=== PATIENT | male | born 1995 | race Caucasian/White ===

== ENCOUNTER 2017-06-30 09:22 | Emergency (ER) | payer BC, SELFPAY ==
[2017-06-30 09:24] VITALS: BP 153/93; PULSE 71; RESP 16; TEMP 36.8; O2SAT 99; BMI 29.0
[2017-06-30] MEDS: Ketorolac 30 MG/ML Syringe IV (10:09)
[2017-06-30] MEDS: DiphenhydrAMINE 50 MG/ML Syringe 25 MG IV (10:09)
[2017-06-30] MEDS: Haloperidol Lactate 5 MG/ML Vial 2 MG IV (10:09)
--- NOTE | 2017-06-30 10:12 | ED.VISSUMM ---
- ER Visit Summary Date of Service: 06/30/17 Chief Complaint: Intermittent t throbbing numb right-sided headache since blunt trauma 1.5 weeks ago History of Present Illness: The patient is a 21 M who states a 4-6 inch diameter limb struck the right side of his head 1-1/2 weeks ago. He may have been days of the time. He has had 2 episodes of headache described as a numb throbbing sensation that was alleviated with Tylenol. He presents today because the headache was not alleviated with Tylenol and has been present for 3 hours. He denies photophobia, loss of vision or double vision. He reported one episode of blurred vision left side of the monitor only. He is unable to tell me the duration. He denies any trouble with speech or swallowing. He denies any paresthesia, anesthesia or motor weakness. He denies any problems with walking or balance. He denies any trouble with sleep i.e. getting to sleep, staying asleep or awakening the morning. He denies confusion or feeling foggy. He denies photosensitivity. He denied any neck pain, paresthesia, anesthesia moderates the time of the injury or since the injury. The person that is with him is concerned that this may be secondary to him not taking his Trileptal at night for the past 3 nights. There is been no seizure activity since the incident. He has a history of complex partial seizures. Physical Examination: Vital signs remarkable blood pressure 153/93. Head is atraumatic normocephalic. Pupils are equal round reactive. Extraocular muscles are intact. Funduscopic exam reveals normal cup-to-disc ratio and no papilledema. There is no APD. TMs are pearly white with landmarks noted. Nares patent with no drainage. Posterior pharynx without erythema or exudate. Uvula is midline. There is no dysphonia or dysphasia. Trachea is midline. There is no stridor with auscultation of the neck. There is no pain palpation of the cervical spine. Heart is regular without murmur, gallop or rub. S1 and S2 are normal. Lungs are clear to auscultation with good movement of air bilaterally. Abdomen is soft nontender. GCS is 15. Patient is alert and oriented ?3. Motor is 5/5. Sensation is intact. DTRs are symmetric and 2+ without clonus or Babinski. Cranial nerves II through XII are intact. Finger to nose to finger was performed adequately. Gait was observed and is normal. There is no truncal ataxia. Test Results: No tests were obtained Emergency Department Course and Treatment: And chemical operations and training were informed since there was no loss of conscious his headache is been intermittent and he has a normal neuro exam radiologic imaging is not indicated based on the [place] CT head rule and [place] rule. His chemical operations and training asked if this may represent a concussion. She was informed that there is no specific test for concussion. Since his symptoms are intermittent and not precipitated or exacerbated by anything doubt this is a concussion. IV was ordered and to treat his headache 30 g of Toradol and 25 mg of Benadryl was ordered. 10 mg of Reglan was also ordered. I was informed that there is a shortage and there is no Reglan available in the hospital. Therefore, patient was treated with 2 mg of Haldol IV push. Treatment Plan: Patient was reassessed at 1045. He reports headache is three-quarter gone. Disposition: Discharged to home in stable and improved condition Impression: 1. Unilateral headache uncertain etiology 2. History of blunt head trauma/contusion 3. History of partial complex seizure disorder and noncompliance of medication This note was generated with [employer] dictation software. It may contain incorrect words, spelling, and punctuation that were not noted in review of the chart prior to signing ED Disposition - Plan for ED Patient: Disposition: Home or Assisted Living Chief Complaint: Headache Instructions: ED Cephalgia Unspecified, ED Contusion Scalp Referrals: Care Physician,No Primary [Primary Care Provider] - Additional Instructions: Patient has not seen a physician since he turned 20. Since he is not from the area he and his significant other were instructed to contact a physician in their area for follow-up. He also was informed of importance to take his seizure medication.
--- NOTE | 2017-06-30 10:18 | ED.DCSUM_ITS ---
- ER Visit Summary Date of Service: 06/30/17 Chief Complaint: Intermittent t throbbing numb right-sided headache since blunt trauma 1.5 weeks ago History of Present Illness: The patient is a 21 M who states a 4-6 inch diameter limb struck the right side of his head 1-1/2 weeks ago. He may have been days of the time. He has had 2 episodes of headache described as a numb throbbing sensation that was alleviated with Tylenol. He presents today because the headache was not alleviated with Tylenol and has been present for 3 hours. He denies photophobia, loss of vision or double vision. He reported one episode of blurred vision left side of the monitor only. He is unable to tell me the duration. He denies any trouble with speech or swallowing. He denies any paresthesia, anesthesia or motor weakness. He denies any problems with walking or balance. He denies any trouble with sleep i.e. getting to sleep , staying asleep or awakening the morning. He denies confusion or feeling foggy. He denies photosensitivity. He denied any neck pain, paresthesia, anesthesia moderates the time of the injury or since the injury. The person that is with him is concerned that this may be secondary to him not taking his Trileptal at night for the past 3 nights. There is been no seizure activity since the incident. He has a history of complex partial seizures. Physical Examination: Vital signs remarkable blood pressure 153/93. Head is atraumatic normocephalic. Pupils are equal round reactive. Extraocular muscles are intact. Funduscopic exam reveals normal cup-to-disc ratio and no papilledema. There is no APD. TMs are pearly white with landmarks noted. Nares patent with no drainage. Posterior pharynx without erythema or exudate. Uvula is midline. There is no dysphonia or dysphasia. Trachea is midline. There is no stridor with auscultation of the neck. There is no pain palpation of the cervical spine. Heart is regular without murmur, gallop or rub. S1 and S2 are normal. Lungs are clear to auscultation with good movement of air bilaterally. Abdomen is soft nontender. GCS is 15. Patient is alert and oriented ?3. Motor is 5/5. Sensation is intact. DTRs are symmetric and 2+ without clonus or Babinski. Cranial nerves II through XII are intact. Finger to nose to finger was performed adequately. Gait was observed and is normal. There is no truncal ataxia. Test Results: No tests were obtained Emergency Department Course and Treatment: And brake drum molder were informed since there was no loss of conscious his headache is been intermittent and he has a normal neuro exam radiologic imaging is not indicated based on the [place] CT head rule and [place] rule. His brake drum molder asked if this may represent a concussion. She was informed that there is no specific test for concussion. Since his symptoms are intermittent and not precipitated or exacerbated by anything doubt this is a concussion. IV was ordered and to treat his headache 30 g of Toradol and 25 mg of Benadryl was ordered. 10 mg of Reglan was also ordered. I was informed that there is a shortage and there is no Reglan available in the hospital. Therefore, patient was treated with 2 mg of Haldol IV push. Treatment Plan: Patient was reassessed at 1045. He reports headache is three- quarter gone. Disposition: Discharged to home in stable and improved condition Impression: 1. Unilateral headache uncertain etiology 2. History of blunt head trauma/contusion 3. History of partial complex seizure disorder and noncompliance of medication This note was generated with [employer] dictation software. It may contain incorrect words, spelling, and punctuation that were not noted in review of the chart prior to signing ED Disposition - Plan for ED Patient: Disposition: Home or Assisted Living Chief Complaint: Headache Instructions: ED Cephalgia Unspecified, ED Contusion Scalp Referrals: Care Physician,No Primary [Primary Care Provider] - Additional Instructions: Patient has not seen a physician since he turned 20. Since he is not from the area he and his significant other were instructed to contact a physician in their area for follow-up. He also was informed of importance to take his seizure medication.
[2017-06-30 11:10] VITALS: PULSE 99; RESP 16; O2SAT 99
== END 2017-06-30 11:12 | disposition home or self-care (01) ==
PROVIDERS: Emergency Provider Emergency Medicine
DX: R51 Headache (principal); G40.209 Localization-related (focal) (partial) symptomatic epilepsy and epileptic syndromes with complex partial seizures, not intractable, without status epilepticus; Z87.828 Personal history of other (healed) physical injury and trauma; Z91.14 Patient's other noncompliance with medication regimen; Z79.899 Other long term (current) drug therapy
CPT/HCPCS: 96374; 96375; 99283; A4216